=== PATIENT | female | born 1965 | race Caucasian/White ===

== ENCOUNTER 2017-06-03 17:24 | Emergency (ER) | payer OTHER ==
[~2017-06-03] VITALS: Ht 170.2 cm; Wt 74.4 kg
[~2017-06-03 17:24] MED LIST: ASPIRIN EC81 MG PO; BLACK COHOSH160 MG PO
--- NOTE | 2017-06-04 17:03 | EKG ---
[facility] [address] [facility] [place] [address] Signed Normal sinus rhythm Normal ECG No previous ECGs available Confirmed by МАРИЯ AVILA MD ([id number]) on 06/04/2017 5:03:01 PM Electronically Signed By: МАРИЯ AVILA MD 06/04/17 1703 PATIENT NAME: JAGDISH KEENE Electrocardiogram DATE OF : 61 PHYSICIAN: МАРИЯ AVILA MD REPORT #: [id number] REPORT IS CONFIDENTIAL AND NOT TO BE RELEASED WITHOUT AUTHORIZATION
== END 2017-06-03 18:30 | disposition home or self-care (01) ==
LOC: ED 17:24
DX: R07.89 Other chest pain (principal); I25.2 Old myocardial infarction; F17.200 Nicotine dependence, unspecified, uncomplicated; Z98.51 Tubal ligation status; Z88.0 Allergy status to penicillin; Z88.5 Allergy status to narcotic agent
CPT/HCPCS: 71010; 80053; 84484; 85025; 93005; 93010; 99284

== ENCOUNTER 2017-12-29 10:02 | Emergency (ER) | payer OTHER ==
[~2017-12-29] VITALS: Ht 170.2 cm; Wt 74.4 kg
[2017-12-29] MEDS ORDERED: HAWTHORN BERRI565 MG PO (10:21)
[2017-12-29] MEDS ORDERED: ZITHROMAX250 MG PO (12:12)
[2017-12-29] MEDS ORDERED: NORCO 5-325 TA1 EACH PO (12:12)
== END 2017-12-29 12:30 | disposition home or self-care (01) ==
LOC: ED 10:02
DX: H66.91 Otitis media, unspecified, right ear (principal); H72.92 Unspecified perforation of tympanic membrane, left ear; I25.2 Old myocardial infarction; F17.200 Nicotine dependence, unspecified, uncomplicated; Z88.0 Allergy status to penicillin; Z88.5 Allergy status to narcotic agent; Z79.899 Other long term (current) drug therapy
CPT/HCPCS: 99283

== ENCOUNTER 2022-02-07 14:27 | Emergency (ER) | payer OTHER ==
[~2022-02-07] VITALS: Ht 170.2 cm; Wt 74.4 kg
[~2022-02-07 14:27] MED LIST changes: +AUGMENTIN 875-1 EACH PO; +CIPRO500 MG PO; +HAWTHORN BERRI565 MG PO; +NORCO 5-325 TA1 EACH PO; +ZITHROMAX250 MG PO
--- OUTSIDE RECORDS SUMMARY | 2022-02-07 14:30 | XMS ---
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 Zak VISIT COUNT (12 MO.) 1 DAWN [facility] TOTAL 1 NOTE: Visits indicate total known visits. ED/UCC VISIT TRACKING (12 MO.) 02/07/2022 14:28 DAWN [facility] TYPE: Emergency COMPLAINT: - CHEST PAIN INPATIENT VISIT TRACKING (12 MO.) No inpatient visits to display in this time frame [email or web address]
[2022-02-07] MEDS ORDERED: CYCLOBENZAPRINE10 MG PO (16:32)
--- NOTE | 2022-02-08 07:15 | EKG ---
[facility] [address] [place] [address] Signed Sinus rhythm with short [place] Rightward axis Possible Anterior infarct , age undetermined Abnormal ECG When compared with ECG of 03-JUN-2017 17:33, No significant change was found Confirmed by ANDREW FOWLER MD ([id number]) on 02/08/2022 7:15:23 AM Electronically Signed By: ANDREW FOWLER MD 02/08/22 0715 PATIENT NAME: JAGDISH KEENE Electrocardiogram DATE OF : 61 PHYSICIAN: ANDREW FOWLER MD REPORT #: [id number] REPORT IS CONFIDENTIAL AND NOT TO BE RELEASED WITHOUT AUTHORIZATION
== END 2022-02-07 16:43 | disposition home or self-care (01) ==
LOC: ED 14:27
DX: S16.1XXA Strain of muscle, fascia and tendon at neck level, initial encounter (principal); M62.838 Other muscle spasm; R73.03 Prediabetes; I25.2 Old myocardial infarction; F17.200 Nicotine dependence, unspecified, uncomplicated; Z88.0 Allergy status to penicillin; Z88.5 Allergy status to narcotic agent; X58.XXXA Exposure to other specified factors, initial encounter
CPT/HCPCS: 36415; 71045; 80048; 84484; 85025; 93005; 93010; 96374; 99285-25; J2060

== ENCOUNTER 2025-07-08 12:57 | Emergency (ER) | payer OTHER ==
[~2025-07-08] VITALS: Ht 170.2 cm; Wt 67.5 kg
[~2025-07-08 12:57] MED LIST changes: +CYCLOBENZAPRINE10 MG PO
--- OUTSIDE RECORDS SUMMARY | 2025-07-08 13:04 | XMS ---
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 Current FAMILY PHONE: [phone] SHERIE LI [facility]: [facility] COMMUNITY PHONE: Unknown BRODIE LAM Physician Street Worker Current PHONE: [phone] [place] has no Care Guidelines for this patient. Zak VISIT COUNT (12 MO.) 1 DAWN [facility] TOTAL 1 NOTE: Visits indicate total known visits. ED/UCC VISIT TRACKING (12 MO.) 07/08/2025 12:58 DAWN [facility] TYPE: Emergency COMPLAINT: - EAR PAIN INPATIENT VISIT TRACKING (12 MO.) No inpatient visits to display in this time frame [email or web address]
[2025-07-08] MEDS ORDERED: ANORO ELLIPTA1 EACH INH (14:58)
[2025-07-08] MEDS ORDERED: IBUPROFEN 600 MG TAB PO ONE (15:00)
[2025-07-08] MEDS ORDERED: NEOMYCIN/POLYMYXIN/HYDROCORT 10 ML HOME.PACK OTIC ONE (15:00)
[2025-07-08] MEDS ORDERED: HYDROCODONE/ACETA 5/325 TAB PO ONE (15:00)
[2025-07-08 15:35] VITALS: BP 105/54
== END 2025-07-08 15:35 | disposition home or self-care (01) ==
LOC: ED 12:57
DX: H60.91 Unspecified otitis externa, right ear (principal); R73.03 Prediabetes; I25.2 Old myocardial infarction; F17.200 Nicotine dependence, unspecified, uncomplicated; Z88.0 Allergy status to penicillin; Z88.5 Allergy status to narcotic agent
CPT/HCPCS: 99282; A9270